=== PATIENT | female | born 1955 | race Caucasian/White ===

== ENCOUNTER 2019-01-22 06:29 | Day surgery (SDC) | payer OTHER ==
[~2019-01-22] VITALS: Ht 154.9 cm; Wt 54.4 kg
[2019-01-22] MEDS ORDERED: fentaNYL 0.05 MG/ML VIAL ONE ×2 (07:43→09:27)
[2019-01-22] MEDS ORDERED: MIDAZOLAM 2 MG/2 ML VIAL ONE ×2 (07:43→09:27)
[2019-01-22] MEDS ORDERED: LIDOCAINE 1% 500 MG/50 ML VIAL ONE (08:48)
[2019-01-22] MEDS ORDERED: BUPIVACAINE-MPF/EPI 0.5% 30 ML VIAL INJ ONE (08:48)
[2019-01-22] MEDS ORDERED: MORPHINE SULFATE 2 MG/ML SYR IVP PRN (10:25)
[2019-01-22] MEDS ORDERED: MORPHINE SULFATE 4 MG/ML SYR IV PRN (10:25)
[2019-01-22] MEDS ORDERED: HYDROcodone/APAP 5/325 MG 1 TAB TAB PO PRN (10:25)
[2019-01-22] MEDS ORDERED: HYDROmorphone 1 MG/ML AMP IVP PRN (10:25)
[2019-01-22] MEDS ORDERED: ONDANSETRON 4 MG/2 ML VIAL IV PRN (10:25)
== END 2019-01-22 10:00 | disposition home or self-care (01) ==
LOC: MOR 06:29 → MMU 06:30 → MOR 10:00
PROVIDERS: ATTEND Surgery
DX: Z45.2 Encounter for adjustment and management of vascular access device (principal); Z85.3 Personal history of malignant neoplasm of breast; Z98.890 Other specified postprocedural states; Z90.710 Acquired absence of both cervix and uterus
CPT/HCPCS: 36590; 88300; J2001; J2250; J3010; J3490; J7120; J0690; J7060